=== PATIENT | male | born 1970 | race Two or more races ===

== ENCOUNTER → 2024-06-06 | Outpatient (CLI) | payer OTHER, SELFPAY ==
[2024-06-06 16:14] LABS: Basophils # (Auto) 0.1 Thou/mm3 (0.0-0.2); Basophils % (Auto) 1 % (0-2.5); Eosinophils # (Auto) 0.7 Thou/mm3 (0.0-0.5); Eosinophils % (Auto) 8 % (0-10); Hematocrit 41.2 % (41.0-53.0); Immature Granulocytes % (Auto) 0 % (0-0); Immature Granulocytes Auto 0.02 Thou/mm3 (0.00-0.00); Lymphocytes # (Auto) 2.3 Thou/mm3 (1.0-4.8); Lymphocytes % (Auto) 27 % (10-50); Mean Corpuscular Volume 86 fL (80-100); Monocytes # (Auto) 0.7 Thou/mm3 (0.0-0.8); Monocytes % (Auto) 8 % (0-12); Neutrophils # (Auto) 4.9 Thou/mm3 (1.8-7.7); Neutrophils % (Auto) 57 % (37-80); Nucleated Red Blood Cell % 0 /100 WBC (0); Platelet Count 210 Thou/mm3 (140-440); Red Blood Count 4.82 Miln/mm3 (4.50-5.90); White Blood Count 8.6 Thou/mm3 (3.8-10.6)
[2024-06-06 16:24] LABS: Creatinine,Random Urine 88 mg/dL (30-125); Protein Total, Random Urine 72 mg/dL (1-14)
[2024-06-06 16:35] LABS: Albumin, Serum 4.6 gm/dL (3.5-5.0); Anion Gap 10 (7-16); BUN/Creatinine Ratio 15 Ratio (12-20); Blood Urea Nitrogen 17 mg/dL (9-23); Calcium 9.7 mg/dL (8.3-10.6); Calcium (Corrected) 9.7 mg/dL (8.5-10.1); Carbon Dioxide 25.3 mMol/L (20.0-31.0); Chloride 100 mMol/L (98-107); Creatinine (Component) 1.1 mg/dL (0.6-1.3); Glucose 198 mg/dL (74-106); Osmolality,Calculated 277 (275-295); Phosphorous 3.5 mg/dL (2.4-5.1); Potassium 4.4 mMol/L (3.4-5.1); Sodium 135 mMol/L (136-145); Vitamin D 25 Hydroxy Total 24.9 ng/mL (7.3-40.2); eGFR > 60 See Note
== END | disposition home or self-care (01) ==
LOC: COPL 15:14
PROVIDERS: PCP Nurse Practitioner; Referring Provider Internal Medicine; Visit Provider Internal Medicine
DX: I12.9 Hypertensive chronic kidney disease with stage 1 through stage 4 chronic kidney disease, or unspecified chronic kidney disease (principal); E11.22 Type 2 diabetes mellitus with diabetic chronic kidney disease; N18.1 Chronic kidney disease, stage 1; E11.21 Type 2 diabetes mellitus with diabetic nephropathy
CPT/HCPCS: 36415; 80069; 82306; 82570; 84156; 85025

== ENCOUNTER → 2024-09-12 | Outpatient (CLI) | payer OTHER, SELFPAY ==
[2024-09-12 08:46] LABS: Glucose Estimated Average 177 mg/dL (80-131); Hemoglobin A1C 7.8 % Hgb (4.8-6.0)
[2024-09-12 08:50] LABS: Creatinine MALB Rnd Ur 108 mg/dL (30-125)
[2024-09-12 09:09] LABS: Microalbumin Creat Ratio 360 mg/gCrea (<30); Microalbumin, Random Urine 389 mg/L (0-300)
== END | disposition home or self-care (01) ==
LOC: COPL 07:01
PROVIDERS: PCP Nurse Practitioner; Referring Provider Nurse Practitioner; Visit Provider Nurse Practitioner
DX: E11.9 Type 2 diabetes mellitus without complications (principal)
CPT/HCPCS: 36415; 82043; 82570; 83036

== ENCOUNTER → 2024-09-20 | Outpatient (CLI) | payer OTHER, SELFPAY ==
--- NOTE | 2024-09-20 14:39 | XR_ITS ---
Examination: Sacrum and coccyx 3 views TECHNIQUE: AP inclined AP lateral sacrum and coccyx 3 views Exam date and time: September 20, 2024 1510 hours INDICATIONS: Patient fell 3 days ago with injury to the sacrum sacral pain FINDINGS: Satisfactory alignment sacrococcygeal segments No fracture IMPRESSION: No sacral or coccygeal fracture
--- NOTE | 2024-09-20 14:39 | XR_ITS ---
Examination: Lumbar spine 3 views Technique one AP lateral coned lateral lower lumbar spine 3 views Exam date and time: September 20, 2024 1809 hours INDICATIONS: Patient fell 3 days ago with injury to lower back, lower back pain. FINDINGS: Adequate alignment lumbar vertebral bodies on the lateral view No lumbar fracture Mild to moderate lumbar disc narrowing IMPRESSION: No lumbar fracture
--- NOTE | 2024-09-20 14:39 | XR_ITS ---
Examination: Cervical spine 3 views Technique one AP lateral coned AP odontoid cervical spine 3 views Exam date and time: September 20, 2024 1504 hours INDICATIONS: Patient fell 3 days ago with injury to the neck, neck pain FINDINGS: Adequate alignment cervical vertebral bodies No cervical fracture. Intact odontoid Mild to moderate cervical spondylosis IMPRESSION: No acute cervical fracture
--- NOTE | 2024-09-20 14:39 | XR_ITS ---
Examination: Thoracic spine 3 views Technique one AP lateral coned lateral upper dorsal spine 3 views Exam date and time: 22/07/2024 1506 hours INDICATIONS: Patient fell 3 days ago with injury to the upper back, upper back pain. FINDINGS: Adequate alignment thoracic vertebral bodies No acute thoracic fracture Mild to moderate diffuse thoracic disc narrowing IMPRESSION: No acute thoracic fracture
== END | disposition home or self-care (01) ==
LOC: CDIM 14:31
PROVIDERS: PCP Nurse Practitioner; Referring Provider Nurse Practitioner; Visit Provider Nurse Practitioner
DX: S39.92XA Unspecified injury of lower back, initial encounter (principal); S29.9XXA Unspecified injury of thorax, initial encounter; S19.9XXA Unspecified injury of neck, initial encounter; W19.XXXA Unspecified fall, initial encounter
CPT/HCPCS: 72040; 72070; 72100; 72220

== ENCOUNTER → 2025-01-14 | Outpatient (CLI) | payer OTHER, SELFPAY ==
[2025-01-14 08:18] LABS: Collection Type, Urine Clean Catch
[2025-01-14 08:44] LABS: Basophils # (Auto) 0.1 Thou/mm3 (0.0-0.2); Basophils % (Auto) 1 % (0-2.5); Eosinophils # (Auto) 1.0 Thou/mm3 (0.0-0.5); Eosinophils % (Auto) 10 % (0-10); Hematocrit 43.4 % (41.0-53.0); Hemoglobin 15.1 g/dL (13.5-16.0); Immature Granulocytes Auto 0.02 Thou/mm3 (0.00-0.00); Lymphocytes # (Auto) 2.7 Thou/mm3 (1.0-4.8); Lymphocytes % (Auto) 28 % (10-50); Mean Corpuscular HGB Conc 34.8 g/dl (31.0-37.0); Mean Corpuscular Hemoglobin 29.1 pg (25.0-35.0); Mean Corpuscular Volume 84 fL (80-100); Monocytes # (Auto) 0.7 Thou/mm3 (0.0-0.8); Monocytes % (Auto) 8 % (0-12); Neutrophils # (Auto) 5.2 Thou/mm3 (1.8-7.7); Neutrophils % (Auto) 54 % (37-80); Nucleated Red Blood Cell # 0.00 Thou/mm3 (0.00-0.00); Nucleated Red Blood Cell % 0 /100 WBC (0); Platelet Count 217 Thou/mm3 (140-440); RDW Standard Deviation 38.5 fL (35.1-43.9); Red Blood Count 5.19 Miln/mm3 (4.50-5.90); White Blood Count 9.6 Thou/mm3 (3.8-10.6)
[2025-01-14 08:46] LABS: Bilirubin,Urine Negative (Negative); Blood,Urine Trace (Negative); Clarity,Urine Clear (Clear/Hazy); Color,Urine Lt-Yellow (Lt Yel-Yel); Culture Indicated,Urine Not Indicated; Glucose, Urine Negative (Negative); Ketones,Urine Negative (Negative); Leukocyte Esterase,Urine Negative (Negative); Nitrite,Urine Negative (Negative); PH,Urine 6.0 (5.0-7.0); Protein,Urine 1+ (Neg - Trace); RBC,Urine 4 /hpf (0-3); Specific Gravity,Urine 1.019 (1.001-1.035); Squamous Epithelial Cell,Urine < 1 /hpf (0-5); Urobilinogen,Urine Negative mg/dL (0.0-1.0); WBC,Urine < 1 /hpf (0-5)
[2025-01-14 08:51] LABS: Glucose Estimated Average 174 mg/dL (80-131); Hemoglobin A1C 7.7 % Hgb (4.8-6.0)
[2025-01-14 09:13] LABS: Alanine Aminotransferase 45 U/L (10-49); Albumin, Serum 4.3 gm/dL (3.5-5.0); Albumin/Globulin Ratio 1.7 (1.2-2.2); Alkaline Phosphatase 68 U/L (46-116); Anion Gap 12 (7-16); Aspartate Amino Transferase 31 U/L (0-34); BUN/Creatinine Ratio 13 Ratio (12-20); Bilirubin,Total 0.6 mg/dL (0.3-1.2); Blood Urea Nitrogen 14 mg/dL (9-23); Calcium 9.5 mg/dL (8.3-10.6); Calcium (Corrected) 9.5 mg/dL (8.5-10.1); Carbon Dioxide 25.5 mMol/L (20.0-31.0); Cardiac Risk Estimate 3.9 RATIO (4.0-6.7); Chloride 104 mMol/L (98-107); Cholesterol 140 mg/dL (132-200); Creatinine (Component) 1.1 mg/dL (0.6-1.3); Globulin 2.5 gm/dL (2.3-3.5); Glucose 117 mg/dL (74-106); HDL Cholesterol 36 mg/dL (40-60); LDL Cholesterol,Calculated 69 mg/dL (0-130); Osmolality,Calculated 282 (275-295); Potassium 4.2 mMol/L (3.4-5.1); Sodium 141 mMol/L (136-145); Total Protein 6.8 gm/dL (5.7-8.2); Triglycerides 175 mg/dL (30-150); eGFR > 60 See Note
[2025-01-14 09:19] LABS: Creatinine MALB Rnd Ur 135 mg/dL (30-125); Microalbumin Creat Ratio 252 mg/gCrea (<30); Microalbumin, Random Urine 340 mg/L (0-300)
[2025-01-16 19:49] LABS: PSA, Free 1.72 ng/mL; PSA, Total 4.2 ng/mL (< OR = 4.0)
[2025-01-20 08:13] LABS: PSA, % Free 41 % (calc) (>25)
== END | disposition home or self-care (01) ==
PROVIDERS: PCP Family Medicine; Referring Provider Nurse Practitioner; Visit Provider Nurse Practitioner
DX: E78.2 Mixed hyperlipidemia (principal); E11.69 Type 2 diabetes mellitus with other specified complication; R80.9 Proteinuria, unspecified; N40.1 Benign prostatic hyperplasia with lower urinary tract symptoms; E11.65 Type 2 diabetes mellitus with hyperglycemia; I10 Essential (primary) hypertension
CPT/HCPCS: 36415; 80053; 80061; 81001; 82043; 82570; 83036; 84153; 84154; 85025

== ENCOUNTER → 2025-01-18 | Outpatient (CLI) | payer OTHER, SELFPAY ==
--- NOTE | 2025-01-18 12:30 | XR_ITS ---
Examination: MRI cervical spine without intravenous contrast Date and time of exam: January 18, 2025, 3004 hours INDICATIONS: Patient fell 4 months ago with injury to the neck, followed by left-sided neck pain Technique: Multiple axial and sagittal sections of the cervical spine to been obtained. T2 weighted sagittal sections, TR 3, 270, TE 117 T1-weighted sagittal sections, TR 500, TE 11 T1-weighted axial sections, TR 607, TE 12, axial sections TR 18, TE 27 and T2 weighted transverse sections, TR 3920, TE 122. Findings: Adequate alignment cervical vertebral bodies No cervical fracture Intact odontoid Diffuse cervical disc desiccation No localized enlargement cervical cord C2-C3 no disc protrusion C3-C4 no disc protrusion C4-C5 2 mm central subarticular osteophyte disc complex, moderate bilateral neural foraminal stenosis C5-C6 moderate to severe overall spinal stenosis, 4 mm central subarticular osteophyte disc complex, indenting the ventral margin cervical cord with advanced bilateral neural foraminal stenosis C6-C7 no disc protrusion C7-T1 no disc protrusion IMPRESSION: C5-C6 moderate to severe overall spinal stenosis, 4 mm central subarticular osteophyte disc complex indenting the ventral margin cervical cord with advanced bilateral neural foraminal stenosis
== END | disposition home or self-care (01) ==
LOC: SMRI 12:05
PROVIDERS: PCP Nurse Practitioner; Referring Provider Nurse Practitioner; Visit Provider Nurse Practitioner
DX: M48.02 Spinal stenosis, cervical region (principal); M25.78 Osteophyte, vertebrae
CPT/HCPCS: 72141

== ENCOUNTER → 2025-03-25 | Outpatient (CLI) | payer OTHER, SELFPAY ==
--- NOTE | 2025-03-25 16:30 | XR_ITS ---
Examination: MRI lumbar spine without contrast Date and time of exam: March 25, 2025, 1654 hrs. Indications: Patient fell off a roof February 28, 2025, with injury to the back, back pain radiating down the left leg Technique: Multiple MRI axial and sagittal sections lumbar spine. Sagittal T2-weighted images, TR 3500, TE 118 T1 weighted transverse sections, TR 688 T8.5, T2-weighted sagittal sections T1 weighted sagittal sections TR 621, TE 30 T2 axial sections, TR 4, 190, TE 84. Findings: Adequate alignment lumbar vertebral bodies. No lumbar fracture. Disc desiccation lower 4 lumbar levels. No spondylolisthesis. L5-S1 5 mm central lumbar disc bulge contiguous with the left S1 nerve root extending to the left intervertebral foramen and right intervertebral foramen with mild bilateral L5 ganglionic compression L4-L5 7 mm right paracentral disc bulge L3-L4 partially extruded 7 mm right paracentral disc bulge indenting the ventral right margin thecal sac More cephalad levels unremarkable Impression: L5-S1 5 mm central lumbar disc bulge contiguous with the left S1 nerve root, with mild bilateral L5 ganglionic compression L4-L5 7 mm right paracentral disc bulge. L3-L4 7 mm partially extruded right paracentral disc bulge indenting the ventral right margin thecal sac
== END | disposition home or self-care (01) ==
LOC: SMRI 16:13
PROVIDERS: PCP Nurse Practitioner; Referring Provider Nurse Practitioner; Visit Provider Nurse Practitioner
DX: M51.370 Other intervertebral disc degeneration, lumbosacral region with discogenic back pain only (principal); M51.360 Other intervertebral disc degeneration, lumbar region with discogenic back pain only; G95.20 Unspecified cord compression; M51.26 Other intervertebral disc displacement, lumbar region
CPT/HCPCS: 72148

== ENCOUNTER → 2025-06-02 | Outpatient (CLI) | payer OTHER, SELFPAY ==
[2025-06-02 09:09] LABS: Alanine Aminotransferase 57 U/L (10-49); Albumin, Serum 4.7 gm/dL (3.5-5.0); Albumin/Globulin Ratio 1.9 (1.2-2.2); Alkaline Phosphatase 68 U/L (46-116); Anion Gap 9 (7-16); Aspartate Amino Transferase 39 U/L (0-34); BUN/Creatinine Ratio 16 Ratio (12-20); Bilirubin,Total 0.5 mg/dL (0.3-1.2); Blood Urea Nitrogen 18 mg/dL (9-23); Calcium 9.8 mg/dL (8.3-10.6); Calcium (Corrected) 9.8 mg/dL (8.5-10.1); Carbon Dioxide 26.4 mMol/L (20.0-31.0); Chloride 103 mMol/L (98-107); Creatinine (Component) 1.1 mg/dL (0.6-1.3); Globulin 2.5 gm/dL (2.3-3.5); Glucose 169 mg/dL (74-106); Osmolality,Calculated 281 (275-295); Potassium 4.5 mMol/L (3.4-5.1); Sodium 138 mMol/L (136-145); Total Protein 7.2 gm/dL (5.7-8.2); eGFR > 60 See Note
== END | disposition home or self-care (01) ==
PROVIDERS: PCP Nurse Practitioner; Referring Provider Internal Medicine; Visit Provider Internal Medicine
DX: I10 Essential (primary) hypertension (principal)
CPT/HCPCS: 36415; 80053